=== PATIENT | male | born 1965 | race Caucasian/White ===

== ENCOUNTER 2017-12-01 18:05 | Emergency (ER) | payer BC ==
[2017-12-01] MEDS ORDERED: Ketorolac 60 MG/2 ML SDV IM ONE (19:26)
--- NOTE | 2017-12-01 19:43 | EDM.PDOC ---
ED HPI GENERAL MEDICAL PROBLEM - General Chief Complaint: Lower Extremity Injury/Pain Stated Complaint: PAIN/SWOLLEN RT LEG Time Seen by Provider: 12/01/17 18:13 Source of Information: Reports: Patient History Limitations: Reports: No Limitations - History of Present Illness INITIAL COMMENTS - FREE TEXT/NARRATIVE: HISTORY AND PHYSICAL: History of present illness: Patient is a 52-year-old male who presents to the emergency room with complaints of right knee pain. He states he was trying to break a fight between a small dog and a larger dog and had kicked the larger dog away resulting in a knee pain. He denies any previous injury, surgery or knee concerns prior to this injury. He denies any numbness or tingling to the affected extremity. Patient was ambulatory into the emergency room. Review of systems: As per history of present illness and below otherwise all systems reviewed and negative. Past medical history: As per history of present illness and as reviewed below otherwise noncontributory. Surgical history: As per history of present illness and as reviewed below otherwise noncontributory. Social history: No reported history of drug or alcohol abuse. Family history: As per history of present illness and as reviewed below otherwise noncontributory. Physical exam: General: Well-developed and well-nourished 52-year-old male. Alert and oriented. Nontoxic appearing and in no acute distress. HEENT: Atraumatic, normocephalic, pupils equal and reactive bilaterally, negative for conjunctival pallor or scleral icterus, mucous membranes moist, throat clear, neck supple, nontender, trachea midline. No drooling or trismus noted. No meningeal signs Lungs: Clear to auscultation, breath sounds equal bilaterally, chest nontender. Heart: S1S2, regular rate and rhythm without overt murmur Abdomen: Soft, nondistended, nontender. Negative for masses or hepatosplenomegaly. Negative for costovertebral tenderness. Pelvis: Stable nontender. Genitourinary: Deferred. Rectal: Deferred. Skin: Intact, warm, dry. No lesions or rashes noted. Extremities: No knee instability noted. Strong pedal pulse with capillary refill less than 3 seconds. Mild tenderness with palpation to the (L) patella. He is negative for cords or calf pain. Neurovascular unremarkable. Neuro: Awake, alert, oriented. Cranial nerves II through XII unremarkable. Cerebellum unremarkable. Motor and sensory unremarkable throughout. Exam nonfocal. Notes: X-ray shows no effusion, dislocation or fracture. We will provide with a knee sleeve and crutches. Prescription for diclofenac via [facility]. Supportive care measures were reviewed and discussed. He voices understanding and is agreeable to plan of care. He denies any further questions at this time. Diagnosis: X-ray Therapeutics: Toradol, Knee sleeve, Crutches Impression: Knee Injury, Right Plan: 1. Rest, ice, elevate the affected extremity. Use the knee sleeve and crutches as needed. 2. Tylenol and/or ibuprofen as needed for pain management. Diclofenac has been prescribed for you. If he do take the diclofenac do not take any additional NSAID such as ibuprofen or Aleve as this can cause stomach upset. Please take with food. 3. Follow-up with the orthopedic provider next week. Return to the ED as needed and as discussed. Definitive disposition and diagnosis as appropriate pending reevaluation and review of above. Onset: Today Duration: Minutes: Location: Reports: Lower Extremity, Right right knee Pain Score (Numeric/FACES): 8 - Related Data Allergies Allergy/AdvReac Type Severity Reaction Status Date / Time No Known Allergies Allergy Verified 12/01/17 18:38 Home Meds: Home Meds . 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 ED EXAM, GENERAL - Physical Exam Exam: See Below (See dictation) Course - Vital Signs Last Recorded V/S: Last Vital Signs Temp 98.4 F 12/01/17 18:38 Pulse 83 12/01/17 20:20 Resp 18 12/01/17 20:20 BP 133/76 12/01/17 20:20 Pulse Ox 98 12/01/17 20:20 - Orders/Labs/Meds Orders: Active Orders 24 hr Category Date Time Status Knee 3V Rt [CR] Stat Exams 12/01/17 18:35 Taken DME for Discharge [COMM] Stat Oth 12/01/17 19:43 Ordered Meds: Medications Discontinued Medications Generic Name Dose Route Start Last Admin Trade Name Chalino PRN Reason Stop Dose Admin Ketorolac Tromethamine 60 mg 12/01/17 19:26 12/01/17 19:31 Toradol IM 12/01/17 19:27 60 mg ONETIME ONE Administration Departure - Departure Time of Disposition: 19:43 Disposition: Home, Self-Care 01 Clinical Impression: Right knee injury Qualifiers: Encounter type: initial encounter Qualified Code(s): S89.91XA - Unspecified injury of right lower leg, initial encounter - Discharge Information Instructions: Knee Sprain, Adult, [id number] Referrals: PCP,None [Primary Care Provider] - Forms: ED Department Discharge Additional Instructions: The following information is given to patients seen in the emergency department who are being discharged to home. This information is to outline your options for follow-up care. We provide all patients seen in our emergency department with a follow-up referral. The need for follow-up, as well as the timing and circumstances, are variable depending upon the specifics of your emergency department visit. If you don't have a primary care physician on staff, we will provide you with a referral. We always advise you to contact your personal physician following an emergency department visit to inform them of the circumstance of the visit and for follow-up with them and/or the need for any referrals to a consulting specialist. The emergency department will also refer you to a specialist when appropriate. This referral assures that you have the opportunity for follow-up care with a specialist. All of these measure are taken in an effort to provide you with optimal care, which includes your follow-up. Under all circumstances we always encourage you to contact your private physician who remains a resource for coordinating your care. When calling for follow-up care, please make the office aware that this follow-up is from your recent emergency room visit. If for any reason you are refused follow-up, please contact the [facility] Emergency Department at and asked to speak to the emergency department charge nurse. [facility] [address], [place] [address] [facility] Professional [facility] [address] [place] [address], [address] [place] [address] 1. Rest, ice, elevate the affected extremity. Use the knee sleeve and crutches as needed. 2. Tylenol and/or ibuprofen as needed for pain management. Diclofenac has been prescribed for you. If he do take the diclofenac do not take any additional NSAID such as ibuprofen or Aleve as this can cause stomach upset. Please take with food. 3. Follow-up with the orthopedic provider next week. Return to the ED as needed and as discussed. - My Orders Last 24 Hours: My Active Orders 12/01/17 18:35 Knee 3V Rt [CR] Stat 12/01/17 19:43 DME for Discharge [COMM] Stat - Assessment/Plan Last 24 Hours: My Active Orders 12/01/17 18:35 Knee 3V Rt [CR] Stat 12/01/17 19:43 DME for Discharge [COMM] Stat
--- NOTE | 2017-12-02 20:20 | CR ---
EXAM DATE: 12/01/17 PATIENT'S AGE: 52 Patient: SHANNON MCLAIN Facility: [place], [place] Site . Site : [id number] Study: XRay Knee Right [id number]/[id number] 7:28:52 PM Ordering Physician: Doctor Carrion Final Report: INDICATION: kicked dog RIGHT KNEE No fracture, dislocation, or destructive lesion of bone is seen. No significant arthritic changes or soft tissue abnormalities are identified. IMPRESSION: Negative right knee radiographs. TRAVIS BRUCE MD [employer] [facility] Dictated by: Js Bruce MD @ 12/01/2017 20:00:45 (Electronic Signature) Report Signed by Proxy. [facility]
== END 2017-12-01 20:24 | disposition home or self-care (01) ==
LOC: MW.ED 18:05
DX: S89.91XA Unspecified injury of right lower leg, initial encounter (principal); F17.210 Nicotine dependence, cigarettes, uncomplicated; W54.1XXA Struck by dog, initial encounter
CPT/HCPCS: 73562; 96372; 99283; J1885